=== PATIENT | male | born 1995 | race Caucasian/White ===

== ENCOUNTER 2024-12-26 05:41 | Emergency (ER) | payer OTHER, SELFPAY ==
[2024-12-26 06:14] LABS: Cocaine Metabolite Screen PRELIM POSITIVE (Negative); THC/Cannabinoid Screen Negative (Negative); Tricyclic Screen Negative (Negative)
[2024-12-26 06:22] LABS: #Basophils 0.1 thou/uL (0.0-0.2); #Eosinophils 0.2 thou/uL (0.0-0.7); #Lymphocytes 1.8 thou/uL (1.20-3.40); #Monocytes 1.0 thou/uL (0.11-0.59); #Neutrophils 8.2 thou/uL (1.40-6.50); %Basophils 0.9 % (0.0-1.0); %Eosinophils 1.4 % (0.0-10.0); %Lymphocytes 15.8 % (21.0-51.0); %Monocytes 8.8 % (0.0-10.0); %Neutrophils 73.3 % (42.0-75.0); Hematocrit 41.5 % (42.0-52.0); Hemoglobin 14.2 g/dL (14.0-18.0); Mean Corpuscular Hemoglobin 27.5 pg (27.0-31.0); Mean Corpuscular Volume 80.4 fl (78.0-98.0); Platelet Count 310 10x3/uL (130-400); Red Blood Cell (RBC) Count 5.16 mill/uL (4.70-6.10); White Blood Cell (WBC) Count 11.1 10x3/uL (4.8-10.8)
[2024-12-26 06:37] LABS: ALT (SGPT) 18 U/L (Less than 45); AST (SGOT) 30 U/L (11-34); Albumin 4.0 g/dL (3.1-4.5); Alkaline Phosphatase 79 U/L (40-110); Anion Gap 14 mmol/L (10-20); BUN (Urea Nitrogen) 10 mg/dL (8.9-20.6); Bilirubin, Total 1.0 mg/dL (0.3-1.2); Calc. Creatinine Clearance 0 mL/min (70-130); Calcium 8.8 mg/dL (7.8-10.44); Carbon Dioxide 20 mmol/L (22-29); Chloride 108 mmol/L (98-107); Globulin 2.9 g/dL (2.4-3.5); Glucose 89 mg/dL (70-105); Potassium 4.3 mmol/L (3.5-5.1); Sodium 138 mmol/L (136-145)
[2024-12-26 06:38] LABS: Acetaminophen Less than 10 mcg/mL (Less than 10); Salicylate Less than 8.0 mg/dL (Less than 8.0)
[2024-12-26 06:46] LABS: Troponin I Less than 0.010 ng/mL (< 0.028)
== END 2024-12-26 12:48 ==
LOC: NAV ERS 05:41
DX: F32.9 Major depressive disorder, single episode, unspecified (principal); R45.851 Suicidal ideations; F17.210 Nicotine dependence, cigarettes, uncomplicated
CPT/HCPCS: 36415; 80053; 80306; 80307; 82550; 84443; 84484; 85025; 93005; J2270; J2272